=== PATIENT | male | born 1990 | race Caucasian/White ===

== ENCOUNTER 2016-10-17 16:30 | Emergency (ER) | payer OTHER ==
[2016-10-17] MEDS: ONDANSETRON HCL/PF 4 MG/ 2ML VIAL IVP ONE (16:35)
[2016-10-17] MEDS: 0.9 % SODIUM CHLORIDE 500 ML IV ONE ×2 (16:45→19:52)
--- NOTE | 2016-10-17 16:56 | ED Physician Documentation ---
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 Pt fell from standing. "I just blacked out." Fall was unwitnessed. Pt denies seizure history or any significant PMHx. Pt had not been out in the heat and does not believe he is dehydrated. Pt sustained two lacerations to scalp in occipital region. Pt has had n/v since striking his head.) - ROS CONST: weakness EYES/ENT: other (hx lazy eye ) CVS/RESP: none GI/: vomiting, nausea MS/SKIN/LYMPH: other (scalp laceration) NEURO/PSYCH: headache - PAST HX Past History: none (no significant PMHx) Allergies/Adverse Reactions: Allergies Allergy/AdvReac Type Severity Reaction Status Date / Time No Known Allergies Allergy Verified 10/17/16 16:39 Home Medications: Ambulatory Orders Medication Instructions Recorded NK [NK] 10/17/16 - SOCIAL HX Smoking History: non-smoker - FAMILY HX Family History: No - VITAL SIGNS Vital Signs: Vital Signs Temp Pulse Resp BP Pulse Ox 98.2 F 88 16 118/80 99 10/17/16 16:30 10/17/16 16:30 10/17/16 16:30 10/17/16 16:30 10/17/16 16:30 - REVIEWED ASSESSMENTS Nursing Assessment Reviewed: Yes Vitals Reviewed: Yes Procedures Wound Location: head Wound Length: two 2.5 cm parallel lacerations occipital scalp Wound's Depth, Shape: superficial, irregular Wound Explored: no foreign body removed Irrigated w/ Saline (ccs): 20 Betadine Prep?: No Anesthesia: 1% Lidocaine Wound Debrided: minimal Wound Repaired With: tiffany (7) Layer Closure?: No Progress - Progress Progress: CT head w/o contrast: No acute parenchymal process. No hemorrhage. Right posterior scalp hematoma. NS 500 cc IVF Zofran 4 mg IV Toradol 30 mg IV Orthostatics Lying 116/65 HR 64 Sitting 118/68 HR 75 Standing 93/53 HR 92 NS 1.5 L IVF Rx Zofran 4 mg ODT. Take one every 8 hrs as needed for nausea/vomiting. ED Results Lab/Radiology - Orders Orders: ED Orders Category Date Time Status CT BRAIN W/O CONTRAST Stat Exams 10/17/16 Ordered CBC/PLATELET/DIFF Routine Lab 10/17/16 Ordered CMP Routine Lab 10/17/16 Ordered UA [URINALYSIS] Routine Lab 10/17/16 Ordered UDS [DRUG SCREEN URINE MEDICAL ONLY] Routine Lab 10/17/16 Ordered 0.9 % Sodium Chloride [Normal Saline] 500 ml Med 10/17/16 16:31 Active IV NOW Ondansetron HCl/Pf [Zofran 4 mg/2 ml] Med 10/17/16 16:31 Discontinued 4 mg IVP NOW ONE General Adult Physical Exam - PHYSICAL EXAM GENERAL APPEARANCE: moderate distress EENT: pharynx normal NECK: normal inspection, supple RESPIRATORY: no resp distress, chest non-tender, breath sounds normal CVS: reg rate & rhythm, heart sounds normal, equal pulses ABDOMEN: soft, normal bowel sounds, non-tender BACK: normal inspection, no CVA tenderness SKIN: other (two parallel 2.5 cm laceration occipital scalp) EXTREMITIES: non-tender, normal range of motion, no evidence of injury NEURO: oriented X3, CN's nml as tested, motor nml, sensation nml Discharge Clincal Impression: Syncopal episode, fall, head injury, scalp laceration, Dehydration Referrals: Primary Doctor,No [Primary Care Provider] - Home Medications: Ambulatory Orders NK [NK] 10/17/16 Condition: Stable Disposition: 01 HOME, SELF-CARE Decision to Admit: NO Decision Time: 20:20
[2016-10-17 17:15] LABS: BASOPHILS % 0.9 (0.0-1.5); MEAN CORPUSCULAR VOLUME 87.8 fl (80.0-100.0); MONOCYTES % 5.5 % (0.0-11.0); NEUTROPHILS # 4.5 # k/uL (1.4-7.7)
[2016-10-17] MEDS: KETOROLAC TROMETHAMINE 30 MG/1ML VIAL IVP ONE (17:20)
[2016-10-17] MEDS: Lidocaine 1% 5ml(IM or SUTURE)(PAIN CLINIC) IJ ONE (17:25)
[2016-10-17 17:32] LABS: eGFR (African) > 60; eGFR (Non-African) > 60
[2016-10-17 17:49] LABS: APPEARANCE,URINE CLEAR (CLEAR); COLOR,URINE YELLOW (YELLOW)
[2016-10-17 17:50] LABS: AMPHETAMINE NEGATIVE ng/mL (<1000); BARBITURATES NEGATIVE ng/mL (<300); CANNABINOIDS NON NEGATIVE ng/mL (< 50); COCAINE NEGATIVE ng/mL (<150); METHAMPHETAMINE NEGATIVE ng/mL (<1000); METHYLENEDIOXYMETHAMPHETAMINE NEGATIVE ng/mL (<500); MORPHINE NEGATIVE ng/mL (<300); OCCULT BLOOD,URINE TRACE-LYSED (NEGATIVE); PH URINE 5.5 (5.0 - 8.0); UROBILINOGEN URINE 0.2 Eu (0.2-1.0)
[2016-10-17] MEDS ORDERED: LORazepam 2 MG/ML VIAL ONE (17:57)
[2016-10-17] MEDS: LORazepam 2 MG/ML VIAL IVP ONE (18:00)
[2016-10-17] MEDS ORDERED: 0.9 % SODIUM CHLORIDE 1,000 ML IV ONE (18:37)
[2016-10-17] MEDS: 0.9 % SODIUM CHLORIDE 1,000 ML IV ONE (18:47)
--- NOTE | 2016-10-17 19:09 | Diagnostic Imaging Report ---
JANIE SANTANA [facility] [address] [facility] [address] [place], [place]. [address] Report Submission Date: Oct 17, 2016 5:06:46 PM CDT Patient Study Name: MICHELA PETERS Date: Oct 17, 2016 4:38:08 PM CDT Modality Type: CT\SR Gender: M Description: CT BRAIN W/O CONTRAST : 86 Institution: [facility] Physician: JANIE SANTANA Examination: CT head without contrast History: Fall Comparison exam: None available Technique: Noncontrast head CT protocol. Findings: Ventricles and sulci are appropriate for patient age. Cerebrocerebellar parenchyma demonstrates normal attenuation. No evidence for parenchymal hemorrhage. No evidence for mass or mass effect. No midline shift. No extra axial fluid collections. Partial visualization of the paranasal sinuses demonstrates opacification of the right maxillary sinus. Mastoid air cells, orbits, and skull without gross irregularity. Right posterior scalp hematoma. Impression: No acute parenchymal process. No hemorrhage. Right posterior scalp hematoma. Electronically signed on Oct 17, 2016 5:06:46 PM CDT by: Js DIAZ
[2016-10-17] MEDS: ONDANSETRON HCL 4 MG TAB.RAPDIS PO ONE (20:24)
[2016-10-17 20:47] VITALS: BP 129/71
== END 2016-10-17 20:30 | disposition home or self-care (01) ==
LOC: ED 16:30
DX: S09.90XA Unspecified injury of head, initial encounter (principal); S01.01XA Laceration without foreign body of scalp, initial encounter; W19.XXXA Unspecified fall, initial encounter; Y93.9 Activity, unspecified; Y99.9 Unspecified external cause status; R55 Syncope and collapse; E86.0 Dehydration
CPT/HCPCS: 70450; 80053; 80377; 81002; 85025; J1885; J2060; J2405; J7030; J7060; 12002; 96361; 96374; 96375; 99283; G0481

== ENCOUNTER 2016-11-27 17:24 | Emergency (ER) | payer SELFPAY ==
--- NOTE | 2016-11-27 17:29 | ED Physician Documentation ---
Seizure - HISTORIAN Historian: patient - HPI Stated Complaint: seizure Chief Complaint: Seizure Timing/Onset/Duration: unknown duration Last known Well Date: 11/27/16 Last Known Well Time: 16:00 Witnessed By: bystander Preceding Symptoms: other (he felt shaky and like his hand had extra skin ) Character of Seizure(s): lost consciousness, unresponsiveness, "shaking all over " Postictal Symptoms: confusion Location of Injury: none - ROS NEURO/PSYCH: headache EYES/ENT: none CVS/RESP: denies: chest pain, shortness of breath, palpitations, cough GI/: adominal pain, nausea, vomiting. 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 Patient data the somewhat similar to an episode in September. Patient did develop some pain in needed tingling sensation in his left upper extremity and to have a lesser extent to the right upper extremity. Patient felt that he might be hypoglycemic and went to the pharmacy to try to get a blood sugars checked. Patient became lightheaded. Someone had called an ambulance. Patient stated he was having a hard time explaining himself and finally agreed to be brought to the emergency room. On admission to the emergency room patient was shaky tremulous and anxious.) <Adam Mays - Last Filed: 11/27/16 19:15> - HPI Additional Information: He states that in September he states he "just passed out" and he was told he had seizure and he thinks this was from hitting his head. He states that he had a [facility] and he was not told he had any issues with either of these tests. He states that he has not had any other issues like this until today. he was working he started to feel a "extra sensation" in his left hand and he states he has this very rarely but he has had it before -today was more extreme. He states that he was worried he had low blood sugar so he went to the pharmacy to check the blood sugar. He states he felt he needed to sit down and he does not remember anything else until he got into the ambulance. He states he did not listen to the ambulance crew b/c he did not know what was going on and he felt he needed to go the bathroom. He was reporting abdominal pain and he feels this was resolved after two episodes of vomiting. He states that at this time 555 he is now having a headache - no specific location. He reports that at this time he has less nausea (Whit Maier) - PAST HX Allergies/Adverse Reactions: Allergies Allergy/AdvReac Type Severity Reaction Status Date / Time No Known Allergies Allergy Verified 11/27/16 18:09 Home Medications: Ambulatory Orders Medication Instructions Recorded NK [NK] 10/17/16 - VITAL SIGNS Vital Signs: Vital Signs Temp Pulse Resp BP Pulse Ox 97.8 F 85 22 129/73 99 11/27/16 17:24 11/27/16 17:24 11/27/16 17:24 11/27/16 17:24 11/27/16 17:24 - Progress Progress: 1822: complaint of headache. Tylenol will be admin 1837: States mild decrease in headache. Denies any abdominal pain. Mild nausea. Is asking to go home. (Whit Maier) ED Results Lab/Radiology <Whit Maier - Last Filed: 11/27/16 18:43> <Adam Mays - Last Filed: 11/27/16 19:15> - Lab Results Lab Results: Lab Results 11/27/16 11/27/16 17:55 17:55 WBC 8.40 K/ul K/ul (4.00-12.00) RBC 5.00 M/ul M/ul (3.90-5.20) Hgb 14.7 g/dL g/dL (12.0-18.0) Hct 42.5 % % (37.0-53.0) MCV 85.1 fl fl (80.0-100.0) MCH 29.3 pg pg (28.0-34.0) MCHC 34.5 g/dL g/dL (30.0-36.0) RDW 12.8 % % (11.3-14.3) Plt Count 121 K/mm3 L K/mm3 (130-400) Neut % (Auto) 70.6 % % (39.0-79.0) Lymph % (Auto) 18.4 % % (16.0-50.0) Schuyler % (Auto) 6.7 % % (0.0-11.0) Eos % (Auto) 2.4 % % (0.0-6.8) Baso % (Auto) 0.8 (0.0-1.5) Neut # (Auto) 5.9 # k/uL # k/uL (1.4-7.7) Lymph # (Auto) 1.5 # k/uL # k/uL (0.6-4.0) Schuyler # (Auto) 0.6 # k/uL # k/uL (0.0-0.9) Eos # (Auto) 0.2 # k/uL # k/uL (0.0-0.6) Baso # (Auto) 0.1 # k/uL # k/uL (0.0-0.5) Reactive Lymphs % 1.1 % % (0.0-5.0) Reactive Lymphs # 0.1 # k/uL # k/uL (0.0-0.8) Sodium 139 mmol/L mmol/L (136-145) Potassium 4.2 mmol/L mmol/L (3.5-5.0) Chloride 103 mmol/L mmol/L (98-110) Carbon Dioxide 24 mmol/L mmol/L (20-32) BUN 14 mg/dL mg/dL (10-26) Creatinine 1.1 mg/dL mg/dL (0.4-1.5) Estimated Creat Clear 109 Est GFR ( Amer) > 60 (60 - ) Est GFR (Non-Af Amer) > 60 (60 - ) Glucose 125 mg/dL H mg/dL (70-99) Calcium 10.3 mg/dL mg/dL (8.5-10.5) Total Bilirubin 0.7 mg/dL mg/dL (0.2-1.2) AST 29 U/L U/L (0-41) ALT 18 U/L U/L (0-45) Alkaline Phosphatase 68 U/L U/L (46-116) Total Protein 7.3 g/dL g/dL (6.0-8.5) Albumin 4.6 g/dL g/dL (3.0-5.5) Ethyl Alcohol < 10.0 MG/DL MG/DL (<10.0) - Radiology Radiology Impressions: Examination: PA and lateral chest. History: Evaluate lung james. Comparison exams: None provided Findings: PA lateral chest demonstrate a normal cardiac and mediastinal silhouette. No focal infiltrate. No effusion. No blunting of the costophrenic margins. Osseous structures are appropriate for age. Impression: No acute pulmonary process. Examination: CT head without contrast History: Seizure Comparison exam: 17 October 2016 Technique: Noncontrast head CT protocol. Findings: Ventricles and sulci are appropriate for patient age. Cerebrocerebellar parenchyma demonstrates normal attenuation. No evidence for parenchymal hemorrhage. No evidence for mass or mass effect. No midline shift. No extra axial fluid collections. Partial visualization of the paranasal sinuses demonstrates a large right maxillary sinus mucous retention cyst. Mastoid air cells, orbits, skull and scalp without gross irregularity. Impression: Stable examination. No acute parenchymal process. No hemorrhage. Given patient's history, MR brain is recommended. Electronically signed on Nov 27, 2016 6:38:28 PM CDT by: Js Quintero (Whit Maier) - Orders Orders: ED Orders Category Date Time Status CHEST P.A.&LAT 2 VIEWS [RAD] Stat Exams 11/27/16 17:[address] BRAIN W/O CONTRAST Stat Exams 11/27/16 17:44 Completed BLOOD CULTURE Stat Lab 11/27/16 Ordered CBC/PLATELET/DIFF Routine Lab 11/27/16 17:55 Completed CMP Routine Lab 11/27/16 17:55 Completed DRUG SCREEN URINE MEDICAL ONLY Routine Lab 11/27/16 Ordered ETHANOL MEDICAL USE ONLY Routine Lab 11/27/16 17:55 Completed SALICYLATE LEVEL Routine Lab 11/27/16 17:55 Received Acetaminophen [Tylenol] Med 11/27/16 18:21 Discontinued 650 mg PO NOW ONE Chem Sticks Med 11/27/16 17:47 Discontinued 1 each MC NOW ONE Lactated Ringers [Ringers, Lactated] 1,000 ml Med 11/27/16 18:11 Active IV Q1H Naproxen [Naprosyn] Med 11/27/16 19:06 Once 500 mg PO NOW ONE Ondansetron HCl/Pf [Zofran 4 mg/2 ml] Med 11/27/16 17:33 Discontinued 4 mg .ROUTE .STK-MED ONE Ondansetron HCl/Pf [Zofran 4 mg/2 ml] Med 11/27/16 18:12 Discontinued 4 mg IVP NOW ONE Oxygen Daily Oxygen 11/27/16 17:45 Ordered EKG WITH COMPARISON Stat Ther 11/27/16 Ordered Seizure Physical Exam - Physical Exam General Appearance: moderate distress (with admission - calmed after admission ) Altered Mental Status Higher Functions: abnml respond to command, slow to respond (after admission oriented x 3 and cooperative ) EENT: nml eye inspection Neck/Back: normal inspection Respiratory: no resp. distress, breath sounds nml CVS: reg rate & rhythm, heart sounds normal, equal pulses Abdomen: nml bowel sounds, no distention, tenderness, other (on admission he had abdominal pain but did clear after vomiting ) Skin: warm/dry, normal color Extremities: normal range of motion Observed Seizure Activity in ED: awake Seizure Duration: 0 (Unknown ) - Nexus Criteria Neg Nexus Criteria: Nexus criteria neg <Whit Maier - Last Filed: 11/27/16 18:43> - Physical Exam EENT: PERRL CVS: no murmur Abdomen: tenderness, other (on admission he had abdominal pain but did clear after vomiting, Patient was gagging himself on admission to feel better. Did have some mild hematemisis noted.) Observed Seizure Activity in ED: generalized (shaking all over) <Adam Mays - Last Filed: 11/27/16 19:15> Discharge <Whit Maier - Last Filed: 11/27/16 18:43> Decision to Admit: NO Date of Decison to Admit: 11/27/16 Decision Time: 18:55 <Adam Mays - Last Filed: 11/27/16 19:15> Clincal Impression: Panic attack Referrals: Primary Doctor,No [Primary Care Provider] - 2 Days Additional Instructions: Follow-up with your primary care provider about possible further work-up of your symptoms. You possibly may be having panic attacks. Try to do some relaxing techniques with your next episode. If you have any further questions to return to the ED. Home Medications: Ambulatory Orders NK [NK] 10/17/16 Condition: Stable Disposition: 01 HOME, SELF-CARE
[2016-11-27] MEDS ORDERED: ONDANSETRON HCL/PF 4 MG/ 2ML VIAL ONE (17:33)
[2016-11-27 18:00] LABS: BASOPHILS % 0.8 (0.0-1.5); EOSINOPHILS % 2.4 % (0.0-6.8); MEAN CORPUSCULAR HEMOGLOBIN 29.3 pg (28.0-34.0); MEAN CORPUSCULAR VOLUME 85.1 fl (80.0-100.0); MONOCYTES % 6.7 % (0.0-11.0); NEUTROPHILS # 5.9 # k/uL (1.4-7.7)
[2016-11-27] MEDS: LACTATED RINGERS 1,000 ML IV ONE (18:11)
[2016-11-27] MEDS: ONDANSETRON HCL/PF 4 MG/ 2ML VIAL IVP ONE (18:12)
[2016-11-27 18:15] LABS: eGFR (African) > 60; eGFR (Non-African) > 60
[2016-11-27] MEDS: ACETAMINOPHEN 325 MG TABLET PO ONE (18:30)
--- NOTE | 2016-11-27 18:51 | Diagnostic Imaging Report ---
[facility] [address] [facility] [address] [place], [place]. [address] Report Submission Date: Nov 27, 2016 6:35:23 PM CDT Patient Study Name: MICHELA PETERS Date: Nov 27, 2016 6:07:13 PM CDT Modality Type: CR Gender: M Description: CHEST : 86 Institution: [facility] Physician: LISSETTE MCGUIRE Examination: PA and lateral chest. History: Evaluate lung james. Comparison exams: None provided Findings: PA lateral chest demonstrate a normal cardiac and mediastinal silhouette. No focal infiltrate. No effusion. No blunting of the costophrenic margins. Osseous structures are appropriate for age. Impression: No acute pulmonary process. Electronically signed on Nov 27, 2016 6:35:23 PM CDT by: Js DIAZ
--- NOTE | 2016-11-27 18:51 | Diagnostic Imaging Report ---
[facility] [address] [facility] [address] [place], [place]. [address] Report Submission Date: Nov 27, 2016 6:38:28 PM CDT Patient Study Name: MICHELA PETERS Date: Nov 27, 2016 6:04:01 PM CDT Modality Type: CT\SR Gender: M Description: CT BRAIN W/O CONTRAST : 86 Institution: [facility] Physician: LISSETTE MCGUIRE Examination: CT head without contrast History: Seizure Comparison exam: 17 October 2016 Technique: Noncontrast head CT protocol. Findings: Ventricles and sulci are appropriate for patient age. Cerebrocerebellar parenchyma demonstrates normal attenuation. No evidence for parenchymal hemorrhage. No evidence for mass or mass effect. No midline shift. No extra axial fluid collections. Partial visualization of the paranasal sinuses demonstrates a large right maxillary sinus mucous retention cyst. Mastoid air cells, orbits, skull and scalp without gross irregularity. Impression: Stable examination. No acute parenchymal process. No hemorrhage. Given patient's history, MR brain is recommended. Electronically signed on Nov 27, 2016 6:38:28 PM CDT by: Js DIAZ
[2016-11-27] MEDS: NAPROXEN 250 MG TABLET PO ONE (19:08)
[2016-11-27 19:59] VITALS: BP 134/76
== END 2016-11-27 19:55 | disposition home or self-care (01) ==
LOC: ED 17:24
DX: F41.0 Panic disorder [episodic paroxysmal anxiety] (principal)
CPT/HCPCS: 70450; 71020; 80053; 80302; 80320; 85025; 87040; J2405; J7120; 96361; 96374; 99283; G0479; G0480

== ENCOUNTER 2017-01-15 21:22 | Emergency (ER) | payer SELFPAY ==
--- NOTE | 2017-01-15 21:35 | ED Physician Documentation ---
General Adult - HISTORIAN Historian: patient - HPI Stated Complaint: headache, n/v Chief Complaint: General Adult Onset: days ago (1) Timing: still present Severity: moderate Further Comments: yes (Pt is a 26 yo male with n/v, diarrhea, abd pain x 1 day. No fever. No blood in bm's. Pt has also had headache.) - ROS CONST: other (malaise) EYES/ENT: none CVS/RESP: none GI/: abdominal pain, vomiting, nausea, diarrhea MS/SKIN/LYMPH: none NEURO/PSYCH: headache - PAST HX Past History: other (lazy eye) Allergies/Adverse Reactions: Allergies Allergy/AdvReac Type Severity Reaction Status Date / Time No Known Allergies Allergy Verified 01/15/17 21:30 Home Medications: Ambulatory Orders Medication Instructions Recorded NK [NK] 10/17/16 - SOCIAL HX Smoking History: non-smoker Alcohol Use: none Drug Use: marijuana - FAMILY HX Family History: No - VITAL SIGNS Vital Signs: Vital Signs Temp Pulse Resp BP Pulse Ox 134/76 11/27/16 19:55 - REVIEWED ASSESSMENTS Nursing Assessment Reviewed: Yes Vitals Reviewed: Yes Progress - Progress Progress: CT abd/pelvis w IV contrast: The gallbladder is partially contracted. The liver , kidneys, spleen, pancreas, adrenals, great vessels, and mesenteric structures are normal. The lung bases are clear. Bowel loops exhibit normal caliber and wall thickness. Mostly liquid colonic stool is present. Small bowel loops are normal in caliber. Some contain liquid. Pelvic sections a normal appendix. Liquid rectal stool is present. The urinary bladder, prostate, and seminal vesicles are unremarkable. Small bilateral inguinal lymph nodes are present. Impression: 1. Small bowel fluid and liquid colorectal stool suggests enteritis. 2. Normal appendix. 3. Contracted gallbladder. CXR: neg 1 L NS IVF in ER Zofran 4 mg IV in ER Toradol 30 mg IV in ER. Rx Ciprofloxacin 500 mg. Take one every 12 hrs for 7 days. 1st dose in ER. Rx Metronidazole 500 mg. Take one every 8 hrs for 7 days. 1st dose in Er. Rx Zofran ODT 4 mg. Take one every 8 hrs as needed for nausea/vomiting. Drink plenty of fluids. General Adult Physical Exam - PHYSICAL EXAM GENERAL APPEARANCE: moderate distress EENT: pharynx normal NECK: normal inspection, supple RESPIRATORY: no resp distress, chest non-tender, wheezes (slight) CVS: reg rate & rhythm, heart sounds normal ABDOMEN: soft, normal bowel sounds, tenderness (diffuse abd tenderness). No: rebound BACK: normal inspection, no CVA tenderness SKIN: warm/dry, normal color EXTREMITIES: non-tender, normal range of motion, no evidence of injury NEURO: oriented X3, motor nml, sensation nml Discharge Clincal Impression: Gastroenteritis Referrals: Primary Doctor,No [Primary Care Provider] - Condition: Stable Disposition: 01 HOME, SELF-CARE Decision to Admit: NO Decision Time: 23:51
[2017-01-15] MEDS ORDERED: 0.9 % SODIUM CHLORIDE 1,000 ML IV ONE (21:39)
[2017-01-15] MEDS ORDERED: ONDANSETRON HCL/PF 4 MG/ 2ML VIAL IVP ONE (21:41)
[2017-01-15 22:19] LABS: eGFR (African) > 60; eGFR (Non-African) > 60
[2017-01-15] MEDS ORDERED: metroNIDAZOLE 500 MG TABLET PO ONE (23:20)
[2017-01-15] MEDS ORDERED: CIPROFLOXACIN HCL 500 MG TABLET PO ONE (23:20)
[2017-01-15] MEDS ORDERED: KETOROLAC TROMETHAMINE 30 MG/1ML VIAL IVP ONE (23:23)
[2017-01-15] MEDS ORDERED: ONDANSETRON HCL 4 MG TAB.RAPDIS PO ONE (23:39)
[2017-01-16 00:26] VITALS: BP 138/72
[2017-01-16 05:38] LABS: AMPHETAMINE NEGATIVE ng/mL (<1000); BARBITURATES NEGATIVE ng/mL (<300); CANNABINOIDS NON NEGATIVE ng/mL (< 50); COCAINE NEGATIVE ng/mL (<300); METHAMPHETAMINE NEGATIVE ng/mL (<1000); METHYLENEDIOXYMETHAMPHETAMINE NEGATIVE ng/mL (<500); OPIATES NEGATIVE ng/mL (<300)
[2017-01-16 05:56] LABS: BASOPHILS % 0.3 (0.0-1.5); EOSINOPHILS % 0.9 % (0.0-6.8); MEAN CORPUSCULAR HEMOGLOBIN 28.8 pg (28.0-34.0); MEAN CORPUSCULAR VOLUME 84.2 fl (80.0-100.0); NEUTROPHILS # 18.2 # k/uL (1.4-7.7)
--- NOTE | 2017-01-16 06:45 | Diagnostic Imaging Report ---
JANIE SANTANA [facility] [place] [facility] [address] [facility] [address] [address] Report Submission Date: Jan 15, 2017 11:16:45 PM CDT Patient Study Name: MICHELA PETERS Date: Jan 15, 2017 10:51:43 PM CDT Modality Type: CT\SR Gender: M Description: CT ABD & PELVIS W/ CON : 86 Institution: [facility] [place] [facility] Physician: JANIE SANTANA Computed tomography of the abdomen and pelvis with contrast History: Abdominal pain and leukocytosis Findings: Transverse abdomen and pelvis sections are obtained after 90 mL intravenous visipaque. The gallbladder is partially contracted. The liver, kidneys, spleen, pancreas, adrenals, great vessels, and mesenteric structures are normal. The lung bases are clear. Bowel loops exhibit normal caliber and wall thickness. Mostly liquid colonic stool is present. Small bowel loops are normal in caliber. Some contain liquid. Pelvic sections a normal appendix. Liquid rectal stool is present. The urinary bladder, prostate, and seminal vesicles are unremarkable. Small bilateral inguinal lymph nodes are present. Impression: 1. Small bowel fluid and liquid colorectal stool suggests enteritis. 2. Normal appendix. 3. Contracted gallbladder. Electronically signed on Jan 15, 2017 11:16:45 PM CDT by: Ambrose DIAZ
--- NOTE | 2017-01-16 06:46 | Diagnostic Imaging Report ---
JANIE SANTANA [facility] [address] [facility] [address] [address] Report Submission Date: Jan 15, 2017 11:06:48 PM CDT Patient Study Name: MICHELA PETERS Date: Jan 15, 2017 10:38:06 PM CDT Modality Type: CR Gender: M Description: CHEST : 86 Institution: [facility] Physician: JANIE SANTANA Chest 2 views History: Leukocytosis and wheezing Findings: A loop recorder projects over the left hemithorax. The lungs are hyperinflated without pneumonia or pleural effusion. Heart size and pulmonary vascularity are normal. Osseous structures are unremarkable. Impression: Hyperinflation. Electronically signed on Jan 15, 2017 11:06:48 PM CDT by: Ambrose DIAZ
== END 2017-01-15 23:55 | disposition home or self-care (01) ==
LOC: ED 21:22
DX: K52.9 Noninfective gastroenteritis and colitis, unspecified (principal)
CPT/HCPCS: 71020; 74177; 80053; 83690; 85025; A9270; J1885; J2405; J7030; 80377; 96361; 96374; 96375; 99283; Q9967; G0481; S1016